=== PATIENT | male | born 1960 | race African-American/Black ===

== ENCOUNTER 2016-06-20 21:30 | Emergency (ER) | payer SELFPAY ==
[~2016-06-20 21:30] MED LIST: KEFLEX500 MG ORAL
--- NOTE | 2016-06-20 21:46 | Emergency Room Report ---
History of Present Illness General Chief Complaint: To Be Triaged Source: Patient Present Illness HPI This is a 55-year-old male who checked in for "stomach problems." After signing , he said he doesn't want to stay. No triage was done. I did not see the patient. Allergies: Coded Allergies: TETRACYCLINES (Unverified Allergy, Unknown, 07/18/14) Patient History Past Medical History: see triage record, old chart reviewed Past Surgical History: other Pertinent Family History: none Immunizations: other Reviewed Nursing Documentation: PMH: Agreed, PSxH: Agreed Nursing Documentation-PMH Hx Gastrointestinal Problems: Yes - DIVERTICULITIS Medical Decision Making Diagnostic Impression: Primary Impression: Abdominal pain Qualified Codes: R10.84 - Generalized abdominal pain Disposition: LEFT W/OUT BEING SEEN SHAHIDA THOMPSON M.D. Jun 20, 2016 21:46
== END 2016-06-20 21:45 | disposition left against medical advice (07) ==
LOC: EMR 21:45
DX: R10.9 Unspecified abdominal pain (principal); Z53.21 Procedure and treatment not carried out due to patient leaving prior to being seen by health care provider

== ENCOUNTER 2019-06-17 14:38 | Emergency (ER) | payer SELFPAY ==
[2019-06-17] VITALS (7 sets, daily range): BP systolic 140–180; BP diastolic 79–105
[~2019-06-17] VITALS: Ht 172.7 cm; Wt 83.9 kg
[2019-06-17] MEDS ORDERED: Tetracaine 0.5% Opth 4ml Soln ONE (14:55)
--- NOTE | 2019-06-17 14:55 | NUR ---
ED Nurse Note: Patient walked into ED from home c/o new onset 8/10 upper right aching chest pain that started 2 hours ago. Patient has had left eye redness and pain x 1 week with blurred vision, and he states the chest pain radiates to his left eye.
--- NOTE | 2019-06-17 14:55 | NUR ---
ED Nurse Note: Patient AxO x 4, no s/s of acute distress. Visual acuity test performed, patient can see 20/25 out of his right eye, but cannot read anything with his left eye d/t his vision being blurred.
[2019-06-17] MEDS ORDERED: Tetracaine 0.5% Opth 4ml Soln LEFT EYE ONE (15:00)
[2019-06-17] MEDS ORDERED: Omnipaque 350 100ml vial INJ PRN (15:00)
--- NOTE | 2019-06-17 15:12 | Diagnostic Imaging Report ---
Indication: Dyspnea Comparison: None A single view chest radiograph was obtained. Findings: Cardiomediastinal appearance is within normal limits for age. The lungs are clear. Pulmonary vascularity is appropriate. The diaphragmatic contour is smooth and costophrenic angles are sharp. No pleural effusions are identified. The bones are unremarkable. Impression: No acute findings
[2019-06-17] MEDS ORDERED: acetaZOLAMIDE 500mg Inj IVP ONE (15:15)
[2019-06-17] MEDS ORDERED: Dorzolamide 2% 10ml Btl LEFT EYE ONE (15:15)
[2019-06-17] MEDS ORDERED: timoloL maleate 0.5% Op Soln 2.5ml LEFT EYE ONE (15:15)
--- NOTE | 2019-06-17 15:19 | Emergency Room Report ---
History of Present Illness General Chief Complaint: Chest Pain Source: Patient Present Illness HPI 58-year-old male history of hypertension presents with atypical chest pain that started 3 hours prior to arrival no aggravating relieving factors severity is moderate, intermittent he endorses a sharp/pressure-like pain patient coincidently also stated that he has left eye pain has been ongoing for 7 days states his vision has decreased he states that his doctor diagnosed him with conjunctivitis patient states his vision has gotten worse patient presents for evaluation Allergies: Coded Allergies: TETRACYCLINES (Unverified Allergy, Unknown, 07/18/14) Patient History Past Medical History: see triage record Reviewed Nursing Documentation: PMH: Agreed; PSxH: Agreed Nursing Documentation-PMH Past Medical History: No History, Except For Hx Hypertension: Yes Hx Gastrointestinal Problems: Yes - DIVERTICULITIS Review of Systems All Other Systems: negative except mentioned in HPI Physical Exam Vital Signs Date Time Temp Pulse Resp B/P (MAP) Pulse Ox O2 Delivery O2 Flow Rate FiO2 06/17/19 14:44 97.3 109 16 178/105 (129) 93 Room Air Sp02 EP Interpretation: reviewed, normal General Appearance: well appearing, no apparent distress, alert Head: normocephalic, atraumatic Eyes: bilateral eye EOMI, bilateral eye other - Right eye: Pressure 18, visual field intact, PE RR LA, left eye hazy, dilated unreactive vision is blurry not intact pressure 40 ENT: uvula midline, moist mucus membranes Neck: supple, thyroid normal, supple/symm/no masses Respiratory: lungs clear, no respiratory distress, no retraction, no accessory muscle use Cardiovascular #1: normal peripheral pulses, regular rate, rhythm, no edema, no gallop, no murmur Gastrointestinal: non tender, soft, no guarding, no rebound Musculoskeletal: normal inspection Neurologic: alert, oriented x3 Psychiatric: mood/affect normal Skin: no rash, warm/dry Procedures Critical Care Time Critical Care Time Given the critical condition in which the patient arrived, the patient was immediately assessed by myself and the nurse, and cardiac monitoring initiated due to the potential for rapid decompensation of the patient's clinical condition. During the course of the patient's stay, I spent a considerable amount of time at the bedside performing serial re-evaluations of the patient's hemodynamic and clinical status because of the recognized potential threat to life or limb in this condition. I then had a chance to review not only all of the available current laboratory and radiographic studies obtained today, but I also reviewed old records available to me at the time. Additionally, any ancillary information available including scrap baller records were reviewed. Sequential vital signs were obtained. Critical Care time of 60 minutes was performed exclusive of billable procedures. Medical Decision Making Diagnostic Impression: Primary Impression: Chest pain Qualified Codes: R07.9 - Chest pain, unspecified Additional Impressions: Acute angle-closure glaucoma of left eye NSTEMI (non-ST elevated myocardial infarction) ER Course 58-year-old male presents with signs symptoms concerning for acute angle- closure glaucoma will also rule out ACS, acetazolamide, timolol, Plan for admission Patient already 7 days out, low salvageable rate for left eye however will start antihypertensive glaucoma medications, patient also found to have an STEMI Lovenox, aspirin given Called over 8 alumni coordinator however they do not have privileges at [facility] Repeat EKG 1616: NSR rate 87, QTc 469, no acute ST elevations, left axis deviation Reevaluation 4:49 PM, pressure of the left eye is 37 Reevaluation 7:25 PM patient was accepted by [facility] under Dr. Lincoln Mendenhall Laboratory Tests Test 06/17/19 15:00 White Blood Count 9.6 K/UL (4.8-10.8) Red Blood Count 5.11 M/UL (4.70-6.10) Hemoglobin 15.3 G/DL (14.2-18.0) Hematocrit 46.0 % (42.0-52.0) Mean Corpuscular Volume 90 FL (80-99) Mean Corpuscular Hemoglobin 29.9 PG (27.0-31.0) Mean Corpuscular Hemoglobin Concent 33.3 G/DL (32.0-36.0) Red Cell Distribution Width 12.2 % (11.6-14.8) Platelet Count 352 K/UL (150-450) Mean Platelet Volume 7.4 FL (6.5-10.1) Neutrophils (%) (Auto) 72.9 % (45.0-75.0) Lymphocytes (%) (Auto) 17.4 % (20.0-45.0) L Monocytes (%) (Auto) 6.8 % (1.0-10.0) Eosinophils (%) (Auto) 0.7 % (0.0-3.0) Basophils (%) (Auto) 2.2 % (0.0-2.0) H Prothrombin Time 10.4 SEC (9.30-11.50) Prothrombin Time INR 1.0 (0.9-1.1) Activated Partial Thromboplast Time 30 SEC (23-33) Sodium Level 139 MMOL/L (136-145) Potassium Level 3.7 MMOL/L (3.5-5.1) Chloride Level 98 MMOL/L (98-107) Carbon Dioxide Level 27 MMOL/L (21-32) Anion Gap 14 mmol/L (5-15) Blood Urea Nitrogen 18 mg/dL (7-18) Creatinine 0.9 MG/DL (0.55-1.30) Estimate Glomerular Filtration Rate > 60 mL/min (>60) Glucose Level 123 MG/DL (74-106) H Calcium Level 9.3 MG/DL (8.5-10.1) Total Bilirubin 0.4 MG/DL (0.2-1.0) Aspartate Amino Transferase (AST) 27 U/L (15-37) Alanine Aminotransferase (ALT) 47 U/L (12-78) Alkaline Phosphatase 79 U/L (46-116) Troponin I 0.144 ng/mL (0.000-0.056) Pro-B-Type Natriuretic Peptide 19 pg/mL (0-125) Total Protein 8.7 G/DL (6.4-8.2) H Albumin 4.1 G/DL (3.4-5.0) Globulin 4.6 g/dL Albumin/Globulin Ratio 0.9 (1.0-2.7) L EKG Diagnostic Results EKG Time: 14:49 EP Interpretation: Sinus tachycardia, rate 105, QTc 449, no acute ST elevations , left axis Rhythm Strip Diag. Results Rhythm Strip Time: 15:18 EP Interpretation: yes Rate: 88 Rhythm: NSR, no PVC's, no ectopy Chest X-Ray Diagnostic Results Chest X-Ray Diagnostic Results : Chest X-Ray Ordered: Yes # of Views/Limited/Complete: 1 View Indication: Chest Pain EP Interpretation: Yes Interpretation: no consolidation, no effusion, no pneumothorax, no acute cardiopulmonary disease Impression: No acute disease Electronically Signed by: Eliot Abad MD Last Vital Signs Date Time Temp Pulse Resp B/P (MAP) Pulse Ox O2 Delivery O2 Flow Rate FiO2 06/17/19 14:44 97.3 109 16 178/105 (129) 93 Room Air Disposition: ADMITTED INPATIENT Condition: Critical Eliot Abad MD Jun 17, 2019 15:19
[2019-06-17 15:35] LABS: BASOPHILS % (AUTO) 2.2 % (0.0-2.0); EOSINOPHILS % (AUTO) 0.7 % (0.0-3.0); HEMOGLOBIN 15.3 G/DL (14.2-18.0); LYMPHOCYTES % (AUTO) 17.4 % (20.0-45.0); MEAN CORPUSCULAR VOLUME 90 FL (80-99); MONOCYTES % (AUTO) 6.8 % (1.0-10.0); NEUTROPHILS % (AUTO) 72.9 % (45.0-75.0); PLATELET COUNT 352 K/UL (150-450); RED BLOOD COUNT 5.11 M/UL (4.70-6.10); RED CELL DISTRIBUTION WIDTH 12.2 % (11.6-14.8); WHITE BLOOD COUNT 9.6 K/UL (4.8-10.8)
[2019-06-17 15:42] LABS: ANION GAP 14 mmol/L (5-15); BLOOD UREA NITROGEN 18 mg/dL (7-18); CALCIUM 9.3 MG/DL (8.5-10.1); CARBON DIOXIDE 27 MMOL/L (21-32); CHLORIDE 98 MMOL/L (98-107); CREATININE 0.9 MG/DL (0.55-1.30); POTASSIUM 3.7 MMOL/L (3.5-5.1); SODIUM 139 MMOL/L (136-145)
[2019-06-17 15:52] LABS: ALANINE AMINOTRANSFERASE 47 U/L (12-78); ALBUMIN 4.1 G/DL (3.4-5.0); ALBUMIN/GLOBULIN RATIO 0.9 (1.0-2.7); ALKALINE PHOSPHATASE 79 U/L (46-116); ASPARTATE AMINO TRANSFERASE 27 U/L (15-37); BILIRUBIN,TOTAL 0.4 MG/DL (0.2-1.0)
--- NOTE | 2019-06-17 15:53 | NUR ---
ED Nurse Note: Patient resting in bed, daughter at bedside. He states that his eye feels better after receiving the eye drops, but his vision is still blurry. No s/s of acute distress.
[2019-06-17] MEDS ORDERED: Enoxaparin 80mg Inj SUBQ ONE (16:15)
[2019-06-17] MEDS ORDERED: Brimonidine 0.2% Opth Sol LEFT EYE ONE (17:45)
[2019-06-17] MEDS ORDERED: DiphenhydrAMINE 50mg/ml Inj IVP ONE (18:15)
--- NOTE | 2019-06-17 19:07 | NUR ---
ED Nurse Note: Report recieved from WILBER Clarke. Pt resting in bed, VSS no s/s of distress noted.
--- NOTE | 2019-06-17 19:07 | NUR ---
ED Nurse Note: Handoff report given to Concetta MERINO
--- NOTE | 2019-06-17 19:29 | NUR ---
ED Nurse Note: ERMD at bedside informing pt of transfer to different facility; Pt signed transfer consent
--- NOTE | 2019-06-17 20:46 | NUR ---
ED Nurse Note: Report given to Karla, Charge Nurse ER at [facility].
--- NOTE | 2019-06-17 21:25 | NUR ---
ED Nurse Note: Pt CO being extremely cold and requested multiple blankets. Current temp: 99.4; Pt sweating profusely and shivering. ERMD ordered 600mg Ibuprofen; Med administered, pt tolerated well no s/s of distress noted. no adverse reactions noted.
[2019-06-17] MEDS ORDERED: Morphine Sulfate 4mg/ml Inj (IV USE ONLY) IVP ONE (21:45)
--- NOTE | 2019-06-17 22:29 | NUR ---
ED Nurse Note: pt sleeping in bed, no s/s of distress noted. no adverse reaction noted. VSS.
--- NOTE | 2019-06-17 22:56 | NUR ---
ED Nurse Note: [facility] arrived for pt transfer
--- NOTE | 2019-06-17 23:00 | NUR ---
ER DISCHARGE NOTE: Patient is cleared to be discharged to [facility] Emergency Room per ERMD, pt is aox4, on room air, with stable vital signs. pt was given transfer instructions, pt was able to verbalize understanding, pt id band removed without complications. pt is able to ambulate with steady gait. pt took all belongings. Report given to [facility], Noel, no s/s of distress noted.
== END 2019-06-17 23:00 | disposition short-term general hospital (02) ==
LOC: EMR 16:43 → EDBEDREQ 18:46 → EDBEDREQSVC 18:46 → EMR 23:00
DX: R07.89 Other chest pain (principal); H40.212 Acute angle-closure glaucoma, left eye; I21.4 Non-ST elevation (NSTEMI) myocardial infarction; I10 Essential (primary) hypertension; Z88.1 Allergy status to other antibiotic agents
CPT/HCPCS: 36415; 71045; 80053; 83880; 84484; 85025; 85610; 85730; 93005; 96361; 96372; 96374; 96375; 99291; J0360; J1120; J1200; J1650; J2270; J7030